=== PATIENT | male | born 1975 | race Caucasian/White ===

== ENCOUNTER 2019-04-09 13:41 | Emergency (ER) | payer MEDICAID, OTHER ==
[~2019-04-09] VITALS: Ht 165.1 cm; Wt 61.2 kg
[2019-04-09 13:58] VITALS: BP 134/72
[2019-04-09] MEDS ORDERED: NAPROXEN 250 MG TABLET ONE (14:17)
--- NOTE | 2019-04-09 14:24 | NUR ---
Patient discharged to home in stable condition. Written and verbal after care instructions given. Patient verbalizes understanding of instruction.
[2019-04-09] MEDS ORDERED: NAPROXEN 250 MG TABLET PO ONE (14:30)
== END 2019-04-09 15:04 | disposition home or self-care (01) ==
LOC: ER 13:41
DX: M54.41 Lumbago with sciatica, right side (principal)